=== PATIENT | male | born 1965 ===

== ENCOUNTER 2020-10-26 15:57 | Emergency (ER) | payer OTHER ==
[~2020-10-26] VITALS: Ht 172.7 cm; Wt 130.9 kg
--- NOTE | 2020-10-26 18:32 | REP ---
INDICATION: cough/covid. COMPARISON: None. TECHNIQUE: AP portable FINDINGS: The lungs are clear. The heart is not enlarged a dual pacing leads are in place. There is no failure or effusion. IMPRESSION: No active process. <Electronically signed by Bao Crooks > 10/26/20 [id number]
[2020-10-26 19:06] LABS: BASO % 0.6 % (0.0-1.0); EOS # 0.1 10^3/uL (0.0-0.5); EOS % 1.1 % (0.0-3.0); HEMATOCRIT 40.1 % (42.0-52.0); MEAN CORPUSCULAR HEMOGLOBIN 30.2 pg (27.0-33.0); MEAN CORPUSCULAR HGB CONC 34.9 g/dl (32.0-36.5); MEAN CORPUSCULAR VOLUME 86.4 fl (80.0-96.0); MONO # 0.7 10^3/uL (0.0-0.8); NEUTROPHILS # 2.9 10^3/uL (1.5-8.5); NEUTROPHILS % 62.4 % (36.0-66.0); PLATELET COUNT, AUTOMATED 150 10^3/uL (150-450); RED BLOOD COUNT 4.64 10^6/uL (4.30-6.10); WHITE BLOOD COUNT 4.6 10^3/uL (4.0-10.0)
[2020-10-26 19:26] LABS: ALBUMIN 3.8 GM/DL (3.2-5.2); ALT/SGPT 49 U/L (12-78); BILIRUBIN,DIRECT 0.3 MG/DL (0.0-0.2); BILIRUBIN,TOTAL 1.1 MG/DL (0.2-1.0); BLOOD UREA NITROGEN 12 MG/DL (7-18); CALCIUM LEVEL 8.7 MG/DL (8.5-10.1); CARBON DIOXIDE LEVEL 29 MEQ/L (21-32); CHLORIDE LEVEL 104 MEQ/L (98-107); CREATININE FOR GFR 1.18 MG/DL (0.70-1.30); GLOMERULAR FILTRATION RATE > 60.0 (>56); GLUCOSE, FASTING 261 MG/DL (70-100); POTASSIUM SERUM 3.7 MEQ/L (3.5-5.1); SODIUM LEVEL 139 MEQ/L (136-145)
[2020-10-26] MEDS ORDERED: GLUCOSE 4GM CHEW TABLET PO PRN (20:30)
[2020-10-26] MEDS ORDERED: COMBIVENT RESPIMAT 100-20MCG INHALER 4GM INH PRN (20:30)
[2020-10-26] MEDS ORDERED: DEXTROSE 50% 50 ML SYRINGE IV PRN (20:30)
[2020-10-26] MEDS ORDERED: ACETAMINOPHEN TAB 650MG DOSE (2X325MG) PO PRN (20:30)
[2020-10-26] MEDS ORDERED: GLUCAGON INJ 1MG VIAL SC PRN (20:30)
[2020-10-26] MEDS ORDERED: guaiFENesin ER 600 MG TAB PO PRN (20:30)
[2020-10-26] MEDS ORDERED: HumaLOG INSULIN (NovoLOG) PER UNIT SC SCH (21:00)
[2020-10-26 21:15] VITALS: BP 192/102
[2020-10-26] MEDS ORDERED: LORA1TAB4 PO (21:23)
[2020-10-26] MEDS ORDERED: JANU50TA22 PO (21:23)
[2020-10-26] MEDS ORDERED: PRAS10TA2 PO (21:23)
[2020-10-26] MEDS ORDERED: FENO135C6 PO (21:23)
[2020-10-26] MEDS ORDERED: INSUH10VL SQ (21:23)
[2020-10-26] MEDS ORDERED: BASA100I SQ (21:23)
[2020-10-26] MEDS ORDERED: SIMV40TA20 PO (21:23)
[2020-10-26] MEDS ORDERED: LOSA25TA14 PO (21:23)
[2020-10-26] MEDS ORDERED: PARO37.54 PO (21:23)
[2020-10-26] MEDS ORDERED: METO1TAB33 PO (21:23)
[2020-10-26] MEDS ORDERED: AMLO1TAB24 (21:23)
[2020-10-27] MEDS ORDERED: HumaLOG INSULIN (NovoLOG) PER UNIT SC SCH (07:30)
== END 2020-10-26 22:01 | disposition home or self-care (01) ==
LOC: M ED 15:57 → UNDOADMOB 15:58 → M ED INP 15:58 → M ED 22:01
DX: U07.1 COVID-19 (principal); E11.9 Type 2 diabetes mellitus without complications; I10 Essential (primary) hypertension; I25.10 Atherosclerotic heart disease of native coronary artery without angina pectoris; E66.9 Obesity, unspecified; Z95.0 Presence of cardiac pacemaker; Z95.5 Presence of coronary angioplasty implant and graft; Z88.0 Allergy status to penicillin; Z79.899 Other long term (current) drug therapy; Z79.4 Long term (current) use of insulin

== ENCOUNTER 2020-10-26 22:13 | Outpatient (CLI) | payer OTHER ==
[~2020-10-26] VITALS: Ht 180.3 cm; Wt 133.6 kg
--- NOTE | 2020-10-26 22:01 | HPEPDOC ---
[facility] Medical History & Physical Date of Admission Oct 26, 2020 Date of Service: Oct 26, 2020 History and Physical CHIEF COMPLAINT: Malaise HISTORY OF PRESENT ILLNESS: Leno Rogel is a 55-year-old male with significant history of diabetes, CAD with stents, obesity who arrives after being diagnosed with Covid from an urgent care center after having sinus congestion and malaise since yesterday. Patient reports that he called his PCP in [place] and his doctor recommended MAB therapy. Patient reports that he is visiting in town from [place] because he attended a for his girlfriends grandfather. Patient reports that he was at the with several other family members and extended family of hers this week and unfortunately, patient's girlfriend's brother got back to his home state of [place] yesterdayafter being at the funeraland tested positive for Covid. Patient denies shortness of breath or dyspnea on exertion. He reports his biggest complaint would be headache and sinus congestion. Of note, patient tolerating room air 100% during exam. PAST MEDICAL HISTORY: 1. Diabetes 2. Hypertension 3. Obesity 4. CAD- stent history 5. anxiety 6. Hyperlipidemia PAST SURGICAL HISTORY: 1. Denies SOCIAL HISTORY: Marital status: Unmarried, golf Resides in: [facility] Tobacco use: Never ETOH: Occasional Illicit drug use: Never Other relevant social factors: Visiting from [place] FAMILY HISTORY: Heart disease, diabetes ALLERGIES: Penicillin REVIEW OF SYSTEMS: Negative except for reported: Headache, fatigue, sinus congestion and diaphoresis without fever since yesterday. HOME MEDICATIONS: Please see below. PHYSICAL EXAMINATION: VITAL SIGNS: Temperature 98.6F oral, pulse 86, respiratory rate 18, blood pressure 170/77, pulse oximetry 98% on room air. GENERAL APPEARANCE: No acute distress HEENT: PERRLA, EOM intact. Conjunctival WNL CARDIOVASCULAR: RRR, S1-S2. No murmur appreciated LUNGS: Clear to auscultation, breathing unlabored on room air ABDOMEN: Body habitus, soft abdomen. Normoactive bowel sounds MUSCULOSKELETAL: No obvious deformity. Range of motion intact. EXTREMITIES: No edema NEUROLOGICAL: Alert oriented x3 PSYCHIATRIC: Appropriate mood LABORATORY DATA: Covid positive ASSESSMENT: 55-year-old male with significant history of Covid exposure and URI symptoms and positive PCR Covid; tolerating room air PLAN: 1. Covid infection without evidence of hypoxemia: Monitor patient. Risk benefits of monoclonal antibody discussed and patient consents. Patient to be given MAB per policy with standard dosing/precautions. Pending no acute reactivity patient to have telemedicine follow-up per protocol tomorrow. Patient to monitor oxygen saturation and symptoms at home. Should his oxygen saturation drop below 93% on room air or patient becomes more symptomatic he is to return for medical assessment. 2. DM: Diabetic diet. While patient receiving treatment monitor blood glucose accordingly. Hypoglycemia and sliding scale insulin if needed for interim. 3. Hypertension: BP monitoring given above transfusion requirements. Patient is notably hypertensive at 170/77; in setting of ER and stress. Encourage relaxation techniques and monitor blood pressure. If systolic blood pressure greater than 180 may give one-time dose of blood pressure control medication, but given the above transfusion to come will allow for permissive reading given need to monitor patient response. 4. Obese: complicates care DVT: Low Raymond score, prophylaxis not required CODE STATUS: Full Dispo planning: Home once post transfusion monitoring timeframe completed Home Medications Scheduled Fenofibric Acid (Choline) (Fenofibric Acid) 135 Mg Capsule.dr, 135 MG PO DAILY Insulin Glargine,Hum.rec.anlog (Basaglar Kwikpen U-100) 100 Unit/1 Ml Insuln.pen, 80 UNITS SQ DAILY Insulin Human Lispro (Novolog) 100 Unit/1 Ml Vial, 90 UNITS SQ WM Losartan Potassium (Losartan Potassium) 25 Mg Tablet, 50 MG PO DAILY Metoprolol Succinate (Metoprolol Succinate) 100 Mg Tab.er.24h, 100 MG PO DAILY Paroxetine HCl (Paroxetine ER) 37.5 Mg Tab.er.24h, 37.5 MG PO DAILY Prasugrel HCl (Prasugrel HCl) 10 Mg Tablet, 10 MG PO DAILY Simvastatin (Simvastatin) 40 Mg Tablet, 40 MG PO DAILY Sitagliptin Phos/Metformin HCl (Janumet Xr 50-500 mg Tablet) 1 Each Tbmp.24hr, 1 TAB PO DAILY Scheduled PRN Lorazepam (Lorazepam) 1 Mg Tablet, 1 MG PO for AGITATION Miscellaneous Medications Amlodipine Besylate (Amlodipine Besylate) 5 Mg Tablet Allergies Coded Allergies: Penicillins (Verified Adverse Reaction, Unknown, hives, 10/26/20) A-FIB/CHADSVASC A-FIB History Current/History of A-Fib/PAF?: No Current PO Anticoag Therapy: No ESTELA BERNABE NP Oct 26, 2020 21:03 GAGAN RUSH MD Nov 06, 2020 04:31
[~2020-10-26 22:13] MED LIST: ALBUTEROL 90 MCG/ACT 8GM HFA INHALER INH PRN; ALBUTEROL SULFATE 2.5 MG/0.5 ML INH NEB SOLN INH PRN; AMLO1TAB24; BASA100I SQ; DEXTROSE 50% 50 ML SYRINGE IV PRN; EPINEPHrine INJ 1 MG/ML 1ML AMP IM PRN; FENO135C6 PO; GLUCAGON INJ 1MG VIAL SC PRN; GLUCOSE 4GM CHEW TABLET PO PRN; HumaLOG INSULIN (NovoLOG) PER UNIT SC SCH; INSUH10VL SQ; JANU50TA22 PO; LORA1TAB4 PO; LOSA25TA14 PO; METO1TAB33 PO; NS 1,000 ML IV SCH; PARO37.54 PO; PRAS10TA2 PO; SIMV40TA20 PO; diphenhydrAMINE 50MG/ML VIAL (J1200) IV PRN; methylPREDNISolone 125MG 2ML VIAL IV PRN
[2020-10-26] MEDS ORDERED: SOTROVIMAB 500 MG in NS 100 ML IV ONE (22:15)
[2020-10-26 22:20] VITALS: BP 170/77
[2020-10-26 22:22] VITALS: BP 170/77
[2020-10-26 22:40] VITALS: BP 152/70
[2020-10-26 23:00] VITALS: BP 152/73
[2020-10-26 23:15] VITALS: BP 136/63
[2020-10-26 23:30] VITALS: BP 155/74
[2020-10-27] VITALS: BP 140/70
[2020-10-27 00:30] VITALS: BP 151/72
[2020-10-27] MEDS ORDERED: HumaLOG INSULIN (NovoLOG) PER UNIT SC SCH (07:30)
== END 2020-10-27 00:42 | disposition home or self-care (01) ==
LOC: M OPCLI4 22:13 → M ICU 22:13 → M OPCLI4 10-27 00:42
PROVIDERS: ATTEND Emergency Medicine
DX: U07.1 COVID-19 (principal)